=== PATIENT | male | born 1940 | race Caucasian/White ===

== ENCOUNTER → 2016-09-22 | Outpatient (CLI) | payer MEDICARE, OTHER ==
[~2016-09-22] MED LIST: AMLODIPINE; ASPIRIN81 M2 PO; ASPIRIN81 MG PO; ATENOLOL PO; AVADART PO; AZOR 10-40 MG1 UDTAB PO; BENICAR HCT 40-1 TA1 PO; CARVEDILOL25 MG PO; CLONIDINE PO; COZAAR100 MG PO; FENOFIBRATE160 MG PO; FINASTERIDE5 M1 PO; FINASTERIDE5 MG PO; HCTZ PO; HYDRALAZINE HC100 MG PO; HYDRALAZINE HCL50 MG PO; LIPITOR PO; LIPITOR40 MG PO; LOPID600 MG PO; MULTI-VITAMIN1 TAB PO; NAPROSYN500 MG PO; NORMODYNE PO; NORVASC PO; NORVASC10 MG PO; OMEPRAZOLE40 MG PO; PANTOPRAZOLE SO40 MG PO; PREVACID PO; PROTONIX; PROTONIX PO; TEKTURNA; TENORMIN25 M1 PO; TESTIM TOP; TRICOR PO; VIT B-12 PO; VIT E PO; VITAMIN D 4001 UDTAB PO
--- NOTE | ~2016-09-22 | US37 ---
[facility] A Service of [facility] & [facility] RADIOLOGY TEXT RESULTS PATIENT: MAX LAWSON LOCATION: [facility] : 39 UNIT #: [id number] AGE: [address]: TIFFANIE PHAM APRN SEX: M ORDER DR: [id number] [facility] [address]. [place], [place] [address] [id number] O MR#: [id number] Acc #: [id number] NAME: MAX LAWSON : 1940 SEX: M STUDY DATE/TIME: 09/22/2016 11:39 UNIT: [facility] ROOM: STUDY DESCRIPTION: US Carotid W/Doppler Bilateral Attending Physician: Tiffanie Pham Aprn Referring Physician: Tiffanie Pham Aprn Ordering Physician: Tiffanie Pham Aprn Primary Care Physician: Tomy Leung M.D. MEDICAL IMAGING REPORT This report is preliminary unless electronic signature is present EXAM Bilateral carotid duplex, 09/22/2016. HISTORY Hypertension, carotid stenosis. FINDINGS There is patent flow seen throughout the right common carotid, internal carotid, and external carotid arteries. There is diffuse atherosclerosis noted throughout these vessels. There is some focal area of homogeneous and irregular-appearing plaque seen in the carotid bifurcation, external carotid artery, and proximal internal carotid artery. The right common carotid artery peak velocity is 98 cm/sec. The right internal carotid artery peak systolic/end diastolic velocities are: proximal 215/60 cm/sec, mid 274/81 cm/sec, distal 146/33 cm/sec. The right external carotid artery peak velocity is 109 cm/sec, and the vertebral artery 56 cm/sec. The right ICA:CCA ratio is 2.8. There is patent flow seen throughout the left common carotid, internal carotid and external carotid arteries. There is heavy calcification noted throughout, especially in the left carotid bifurcation, which appears heterogeneous and irregular. Also extending into the internal carotid artery, as well as external carotid artery. Of note, there is also some heavy irregular plaque noted in the mid portion of the left common carotid artery. The left common carotid artery peak velocity is 70 cm/sec. The left internal carotid artery peak systolic/end diastolic velocities are: proximal 433/180 cm/sec, mid 126/23 cm/sec, distal 131/28 cm/sec. The left external carotid artery has a peak velocity of 73 cm/sec, and the vertebral artery 88 cm/sec. The left ICA:CCA ratio is 6.2. IMPRESSION 1. The right carotid artery has atherosclerosis, consistent with greater STS. [facility] A Service of [facility] & [facility] RADIOLOGY TEXT RESULTS PATIENT: MAX LAWSON [facility] UNIT #: [id number] AGE: [address]: TIFFANIE PHAM APRN SEX: M ORDER DR: than 70% stenosis by duplex criteria. This represents an increase from the 03/2015 study. 2. The left carotid artery demonstrates a high-grade stenosis, likely greater than 80%, by duplex criteria. Again, this represents an increase from the 03/2015 study. 3. Vertebral flow is antegrade bilaterally. STAT * RESULT Dictated by... Toy Yanes M.D. THIS IS AN ELECTRONICALLY VERIFIED REPORT Toy Yanes M.D. at 09/22/2016 4:33 PM Tim TD: 09/22/2016 13:23 JOB #: [id number] MEDICAL IMAGING REPORT COPY
--- NOTE | ~2016-09-22 | CT14 ---
[facility] A Service of [facility] & [facility] RADIOLOGY TEXT RESULTS PATIENT: MAX LAWSON [facility] UNIT #: [id number] AGE: [address]: TIFFANIE PHAM APRN SEX: M ORDER DR: [id number] [facility] [address] [place], [place] [address] [id number] O MR#: [id number] Acc #: [id number] NAME: MAX LAWSON. : 1940 SEX: M STUDY DATE/TIME: 09/22/2016 11:25 UNIT: [facility] ROOM: STUDY DESCRIPTION: CT Angio Abdomen and Pelvis Attending Physician: Tiffanie Pham Aprn Referring Physician: Tiffanie Pham Aprn Ordering Physician: Tiffanie Pham Aprn Primary Care Physician: Tomy Leung M.D. MEDICAL IMAGING REPORT This report is preliminary unless electronic signature is present EXAM CT angiography abdomen and pelvis, 09/22/2016. HISTORY Abdominal aortic aneurysm. Stent repair. FINDINGS This CT exam was performed with one or more of the following radiation dose reduction techniques: Automatic exposure control, adjustment of mA and/or kV according to patient size, and iterative reconstruction. CT angiography abdomen and pelvis performed. Initial imaging performed through the patient's aortic stent graft without intravascular contrast. The patient then received 100 mL Isovue-370 intravenously. Delayed-phase imaging also obtained through the aorta. Comparison 03/20/2016. Multiple three-dimensional reconstructions performed through the aorta. Subtle reticulonodular densities at the lung bases, left greater than right, less pronounced than on prior study and favored to reflect chronic interstitial change and/or minimal bronchiolitis. Trace pericardial fluid. Stable. Heart dfbxzd-os-uedsk limits of normal in size. Liver, gallbladder, spleen, pancreas, adrenal glands unremarkable. Nonobstructing left mid renal calculus and punctate left lower pole renal calculus unchanged. No right renal calculi. Bilateral renal cysts unchanged. No acute renal findings and no perinephric inflammatory change. Not mentioned above, there is a nonobstructing right lower pole renal calculus, which is also stable. CT PELVIS: Extensive streak artifact from left hip arthroplasty. No inguinal adenopathy. Urinary bladder unremarkable. Prostatic calcifications. No pelvic or retroperitoneal adenopathy. Distal esophagus, stomach, small bowel, appendix, colon notable for extensive uncomplicated sigmoid diverticulosis. Multilevel degenerative changes in STS. [facility] A Service of [facility] & [facility] RADIOLOGY TEXT RESULTS PATIENT: MAX LAWSON LOCATION: [facility] : 39 UNIT #: [id number] AGE: [address]: TIFFANIE PHAM, AIMEE SEX: M ORDER DR: the spine. Moderate to marked degenerative changes in the right hip. No acute-appearing bony abnormality. VASCULAR ANATOMY: Visualized descending thoracic aorta unremarkable. The celiac axis is patent with mild atherosclerotic disease at its origin. Superior mesenteric artery patent with mild atherosclerotic disease at its origin. There are 2 right renal arteries. The slightly more cephalad and anterior of these shows moderate disease at its origin. Second right renal artery shows moderate disease in its proximal centimeter. There is a single left renal artery with mild disease at its origin. There is an infrarenal fusiform abdominal aortic aneurysm. Patient has undergone endovascular stent graft placement. The graft limbs appear widely patent and extend to the distal common iliac arteries bilaterally. The aneurysm sac on axial imaging measures up to 5 cm x 4.9 cm. Stable to marginally decreased from prior examination when similar outer azul-fl-lheje wall measurement technique is utilized. When outer uein-qf-gpulp wall measurement technique utilized at the same anatomic level, aneurysm measured 5 cm x 5.2 cm on prior study. There is a very subtle type II endoleak. There is subtle enhancement posterior to the proximal intraaneurysmal graft limbs. This appears associated with a left lumbar artery at the approximately L3-L4 intervertebral disc level. There is also apparent patency of the inferior mesenteric artery to the level of its origin. Attention at followup is recommended. The alturas bilateral internal and external iliac arteries are patent with mild atherosclerotic disease. The alturas common femoral arteries are patent with mild atherosclerotic disease, and the proximal superficial femoral and profunda femoris arteries are patent with mild atherosclerotic disease. There is a focal ulcerated plaque along the anterior aspect of the proximal right superficial femoral artery. This area was not included on the field of view of prior study. IMPRESSION 1. Status post endovascular graft repair of fusiform infrarenal abdominal aortic aneurysm. Graft limbs appear widely patent. Aneurysm sac currently measures approximately 4.9 cm x 5 cm, mkuhmx-sg-rsmoqeklwo decreased in size from prior examination, when it measured 5 cm x 5.2 cm when similar outer jssb-cb-gokvj wall measuring technique is utilized at similar anatomic levels. 2. There is a very subtle endoleak present with some subtle enhancement within the aneurysm sac posterior to the proximal graft limbs. This is in association with a left lumbar artery at approximately L3-L4 intervertebral disc level. The endoleak would appear to be a type II endoleak and may be associated with what appears to be a patent inferior mesenteric artery. Attention at followup recommended. 3. Atherosclerotic changes in the arterial structures as described elsewhere. See remainder of vascular anatomy discussion in body of report above. 4. Heart rolmys-kj-tmzhb limits of normal in size. Trace pericardial fluid. Stable. [facility]. [facility] A Service of [facility] RADIOLOGY TEXT RESULTS PATIENT: MAX LAWSON LOCATION: [facility] : 39 UNIT #: [id number] AGE: [address]: TIFFANIE PHAM, AIMEE SEX: M ORDER DR: 5. Nonobstructing renal stones and bilateral renal cysts unchanged from prior study. 6. Uncomplicated sigmoid diverticulosis. 7. Postoperative change left hip arthroplasty. 8. Degenerative changes in spine and right hip. 9. There is probable emphysema at lung bases. Subtle reticulonodular pattern at the bilateral lung bases, left greater than right, is less pronounced than on prior study and probably represents chronic interstitial change and/or very mild bronchiolitis. Please see remainder of incidental findings in body of report above. Dictated by... Bin Tirado M.D. THIS IS AN ELECTRONICALLY VERIFIED REPORT Bin Tirado M.D. at 09/24/2016 7:54 AM DALIA/lucille TD: 09/23/2016 21:38 JOB #: [id number] MEDICAL IMAGING REPORT COPY
[2016-09-22 12:16] LABS: POC - CREATININE 1.53 mg/dL (0.64-1.27)
== END | disposition home or self-care (01) ==
LOC: CCAT 08:52
PROVIDERS: Nurse Practitioner
DX: I65.23 Occlusion and stenosis of bilateral carotid arteries (principal); I71.4 Abdominal aortic aneurysm, without rupture; N20.0 Calculus of kidney; N28.1 Cyst of kidney, acquired; M47.819 Spondylosis without myelopathy or radiculopathy, site unspecified; M16.11 Unilateral primary osteoarthritis, right hip; Z98.890 Other specified postprocedural states
CPT/HCPCS: 74174; 82565; 93880; 96360; 96361; Q9967

== ENCOUNTER 2016-10-13 10:46 | Emergency (ER) | payer MEDICARE, OTHER ==
--- NOTE | ~2016-10-13 | CR72 ---
[facility] A Service of [facility] RADIOLOGY TEXT RESULTS PATIENT: MAX LAWSON LOCATION: [facility] : 39 UNIT #: [id number] AGE: [address]: Poli Cummings MD SEX: M ORDER DR: [id number] [facility] [address] [place], [place] [address] [id number] E MR#: [id number] Acc #: [id number] NAME: MAX LAWSON. : 1940 SEX: M STUDY DATE/TIME: 10/13/2016 11:18 UNIT: [facility] ROOM: STUDY DESCRIPTION: CR Chest Single View Portable Attending Physician: Poli Cummings M.D. Ordering Physician: Poli Cummings M.D. Primary Care Physician: Tomy Leung M.D. MEDICAL IMAGING REPORT This report is preliminary unless electronic signature is present EXAM Chest portable, 10/13/2016 11:18 hours HISTORY 75-year-old man with sudden onset of dizziness, sweating and drop in blood pressure today. COMPARISON 01/30/2016 FINDINGS 2 portable upright views demonstrate heart size mildly increased from 01/30/2016 which could be due to cardiomegaly or pericardial fluid. There is a stable tortuous atherosclerotic aorta. There is mild pulmonary venous distension slightly increased from 01/30/2016 without definite edema, effusion or pneumothorax. IMPRESSION 1. Heart size is minimally increased from 01/30/2016 which could indicate cardiomegaly or small pericardial effusion. There is a stable tortuous atherosclerotic aorta. 2. There is new mild pulmonary venous distension without definite edema, pneumonia, effusion or pneumothorax. Dictated by... Debra Galicia M.D. THIS IS AN ELECTRONICALLY VERIFIED REPORT Debra Galicia M.D. at 10/13/2016 6:54 PM Johnnie TD: 10/13/2016 14:47 JOB #: [id number] [facility] A Service of [facility] RADIOLOGY TEXT RESULTS PATIENT: MAX LAWSON LOCATION: [facility] #: [id number] : 39 UNIT #: [id number] AGE: [address]: Poli Cummings MD SEX: M ORDER DR: MEDICAL IMAGING REPORT Page 1 of 1 COPY
--- NOTE | ~2016-10-13 | EKG ---
PATIENT: MAX LAWSON UNIT #: [id number] Ventricular Rate: 78 BPM Atrial Rate: 78 BPM P-R Interval: 146 ms QRS Duration: 162 ms Q-T Interval: 486 ms QTC Calculation(Bezet): 554 ms P [place]: 48 degrees Calculated R [place]: 42 degrees Calculated T [place]: -173 degrees Diagnosis Line: Sinus rhythm with Premature atrial complexes Diagnosis Line: Left bundle branch block Diagnosis Line: Abnormal ECG Diagnosis Line: No previous ECGs available Diagnosis Line: Confirmed by SOTO GRACE MD ([id number]) on Diagnosis Line: 10/14/2016 2:21:57 PM INTERPRETING MD: SANJAY WASHINGTON
[~2016-10-13 10:46] MED LIST changes: -ASPIRIN81 MG PO; -CLONIDINE PO; -FINASTERIDE5 MG PO; -HYDRALAZINE HC100 MG PO; -LIPITOR40 MG PO; -PROTONIX; -TESTIM TOP
[2016-10-13 11:08] LABS: BASOPHIL# 0.1 X10e3 (0-0.3); BASOPHIL% 0.4 % (0-2.5); EOSINOPHIL# 0.7 X10e3 (0-0.7); EOSINOPHIL% 4.7 % (0.0-7.0); HEMATOCRIT 41.1 % (38.0-50.0); HEMOGLOBIN 13.3 gm/dL (13.0-16.0); LYMPHOCYTE# 1.7 X10e3 (1.0-3.5); LYMPHOCYTE% 11.5 % (17.0-45.0); MEAN CELL VOLUME 89.8 FL (83-96); MEAN CORPUSCULAR HEMOGLOBIN 29.1 PG (28-34); MEAN CORPUSCULAR HGB CONC 32.5 g/dL (30-36); MEAN PLATELET VOLUME 10.4 FL (6.5-11.5); MONOCYTE% 6.9 % (3.0-12.0); NEUTROPHIL% 76.5 % (40-75); PLATELET COUNT 172 X10e3 (140-420); RED BLOOD COUNT 4.58 X10e (3.90-5.60); RED CELL DISTRIBUTION WIDTH 14.2 % (11.0-15.5); WHITE BLOOD COUNT 14.4 X10e3 (4.0-10.5)
[2016-10-13 11:10] LABS: DIFF IND NO
[2016-10-13 11:36] LABS: ALBUMIN SERUM 3.6 g/dL (3.5-5.0); BILIRUBIN, DIRECT 0.2 mg/dL (0.0-0.2); BILIRUBIN,INDIRECT 0.7 mg/dL (0.0-0.9); BILIRUBIN,TOTAL 0.9 mg/dL (0.2-2.0); BUN/CREATININE RATIO 20.66; CALCIUM SERUM 8.9 mg/dL (8.4-10.2); CREATININE SERUM 1.5 mg/dL (0.6-1.4); GLOM FILT RATE Estimated 48.4 mL/min (>60); POTASSIUM 3.5 mmol/L (3.5-5.1); PROTEIN TOTAL SERUM 6.7 g/dL (6.0-8.3)
[2016-10-13 12:18] LABS: POC - CKMB 2.5 ng/mL (0.0-7.9); POC - TROPONIN <0.05 ng/mL (<=0.05)
[2016-10-13] MEDS ORDERED: CLONIDINE PO (13:23)
[2016-10-13] MEDS ORDERED: LIPITOR40 MG PO (13:24)
[2016-10-13] MEDS ORDERED: CARVEDILOL25 MG PO (13:24)
[2016-10-13] MEDS ORDERED: FENOFIBRATE160 MG PO (13:25)
[2016-10-13] MEDS ORDERED: HYDRALAZINE HC100 MG PO (13:27)
[2016-10-13] MEDS ORDERED: FINASTERIDE5 MG PO (13:27)
[2016-10-13] MEDS ORDERED: COZAAR100 MG PO (13:28)
[2016-10-13] MEDS ORDERED: PROTONIX (13:28)
[2016-10-13] MEDS ORDERED: ASPIRIN81 MG PO (13:29)
[2016-10-13] MEDS ORDERED: PROTONIX PO (13:29)
[2016-10-13] MEDS ORDERED: TESTIM TOP (13:32)
== END 2016-10-13 14:20 | disposition home or self-care (01) ==
LOC: CED 10:46
PROVIDERS: Emergency Medicine
DX: R55 Syncope and collapse (principal); I10 Essential (primary) hypertension; Z79.899 Other long term (current) drug therapy; F17.200 Nicotine dependence, unspecified, uncomplicated
CPT/HCPCS: 36415; 70496; 70498; 71010; 80048; 80076; 82553; 82565; 82947; 84484; 85025; 93005; 96360; 99285; Q9967

== ENCOUNTER 2016-11-11 23:59 | Observation (INO) | payer MEDICARE, OTHER ==
--- NOTE | ~2016-11-11 | CR72 ---
[facility] A Service of [facility] & [facility] RADIOLOGY TEXT RESULTS PATIENT: MAX LAWSON LOCATION: [facility] [id number] : 39 UNIT #: [id number] AGE: [address]: Eduar Sebastian MD SEX: M ORDER DR: [id number] [facility] [address] [place], [place] [address] [id number] E MR#: [id number] Acc #: [id number] NAME: MAX LAWSON : 1940 SEX: M STUDY DATE/TIME: 11/11/2016 23:30 UNIT: [facility] ROOM: STUDY DESCRIPTION: CR Chest Single View Portable Attending Physician: Jami Oro M.D. Ordering Physician: Jami Oro M.D. Primary Care Physician: Tomy Leung M.D. MEDICAL IMAGING REPORT This report is preliminary unless electronic signature is present EXAM Portable chest INDICATIONS Shortness of air for 1 day with chest pain. COMPARISON 10/13/2016 FINDINGS Today's portable view of the chest shows mild, diffuse interstitial prominence with minimal interstitial infiltrates, particularly in the right lower lobe and the findings suggest minimal fluid overload or CHF. The heart size is normal. Dictated by... Wes Patel M.D. THIS IS AN ELECTRONICALLY VERIFIED REPORT Wes Patel M.D. at 11/12/2016 5:31 AM HARRY/lucille TD: 11/12/2016 03:20 JOB #: [id number] MEDICAL IMAGING REPORT Page 1 of 1 COPY
--- NOTE | ~2016-11-11 | CO ---
Unit #: [id number] #: [id number] Patient: MAX LAWSON [id number] [place], [place] [address] [id number] MR#: [id number] NAME: MAX LAWSON ROOM: 554 Age: 75 Sex: M Admission Date: 11/12/2016 : 1940 Attending Physician: Eduar Sebastian M.D. Primary Care Physician: Tomy Leung M.D. Consultation Date: 11/12/2016 CONSULTATION REPORT REASON FOR CONSULT Chronic kidney disease. HISTORY OF PRESENT ILLNESS Mr. Urbina is a very pleasant, 75-year-old, white male with a history of significant hypertension and peripheral vascular disease who presented to the hospital yesterday with complaints of some chest heaviness. He also broke out in a sweat at that time and had some breathing issues. The pain was relieved with nitroglycerin. Patient has been evaluated here at [place] and Dr. Lopes's group feels like he needs a heart catheterization. It was scheduled for tomorrow, which prompted out consultation for heart cath prep, but he is being transferred to [facility] as his family would like him to be transferred there for further care as they know the cardiology team there through family. Patient appears comfortable at this time. He says his breathing is better. He denies any urinary complaints of swelling. He has been using a lot of Aleve at home, taking up to four a day, for quite some time. He denies any history of kidney stones. His blood pressure was noted to be very high when he presented. PAST MEDICAL HISTORY His past medical history is significant for: 1. Peripheral vascular disease with left carotid endarterectomy planned by Dr. Gbariel puga. 2. AAA repair. 3. Hypertension. 4. Hyperlipidemia. 5. Reformed smoker. 6. Obstructive sleep apnea. 7. Renovascular disease, right greater than left. PAST SURGICAL HISTORY Aneurysm repair endovascularly in summer of 2015, right knee surgery, and right hip surgery. MEDICATIONS His home meds are: 1. Clonidine 0.2 mg twice a day. 2. Lipitor 40 mg nightly. 3. Coreg 25 mg twice a day. 4. Fenofibrate 160 mg daily. 5. Finasteride 5 mg a day. 6. Hydralazine 100 mg b.i.d. 7. Cozaar 100 mg a day. Unit #: [id number] #: [id number] Patient: MAX LAWSON 8. Protonix 40 mg a day. 9. Baby aspirin daily. 10. Topical testosterone. ALLERGIES He has no known drug allergies. SOCIAL HISTORY He is a reformed smoker; quit smoking about two months ago. His daughter works in the [employer] at [employer]. Social alcohol use. No drug use. FAMILY HISTORY Negative for any heart disease or kidney problems that run in the family. His daughter did have a nephrectomy as a child. REVIEW OF SYSTEMS A complete 12-point review of systems was completed with the above findings. In addition, he denies any headaches or dizziness. No nosebleed. No sore throat. No earache. Chest pain has improved. No hemoptysis. No nausea, vomiting, or diarrhea. No bright red blood per rectum or melena. No dysuria. No hematuria. No rashes or itching. No flank pain. No night sweats or hot flashes. No intolerance to heat or cold. No bleeding issues. Unless otherwise indicated, the review of systems was negative. PHYSICAL EXAMINATION VITAL SIGNS: Patient is afebrile, pulse 93, respiratory rate 18, and blood pressure 176/108; however, it was as high as 195/118. GENERAL: This is a 75-year-old male sitting comfortably in bed who is alert and in no acute distress. HEENT: Head is atraumatic and normocephalic. Eyes show pink conjunctivae with no scleral icterus. No nasal drainage. No nosebleed. Oropharynx is moist. No thrush. NECK: Shows no rigidity. HEART: Regular rate and rhythm with no significant murmur or rub appreciated. LUNGS: Clear anteriorly with no wheezing or rhonchi at this time. Breathing is nonlabored. ABDOMEN: Soft and nontender. Bowel sounds are present. EXTREMITIES: No lower extremity cyanosis or edema. SKIN: Dry with no rashes. MUSCULOSKELETAL: No joint effusions noted. NEUROLOGIC: Cranial nerves are grossly intact with no gross motor deficits. LYMPHATIC: There is no neck cervical lymphadenopathy. PSYCHIATRIC: Mood and affect appear normal. DIAGNOSTIC STUDIES LABORATORY: CK level was 155 and troponin 0.08. Chemistry this morning noteworthy for a potassium of 3.4, bicarb 24, BUN and creatinine were 30 and 1.6, respectively, with a normal albumin. CBC was unremarkable. BNP was 747. Creatinine on admission was also 1.6. Previously creatinines here were 1.5 in September of 2016 and 1.8 in August 2016. No previous urines here. IMAGING: Chest x-ray showed some questionable interstitial infiltrates. Unit #: [id number] #: [id number] Patient: MAX LAWSON I do note a CT angiogram in August of this year that showed a nonobstructive left kidney stone and bilateral renal cysts. Vascular-ellis, patient had two right renal arteries showing moderate disease and a single left renal artery showing mild disease at its origin with a stented aneurysm. ASSESSMENT AND PLAN 1. Chronic kidney disease, stage 3. It does look like the patient certain has chronic kidney disease, likely related to his hypertension and known vascular issues. We do need to get a urinalysis. Patient has been on Aleve, which we discussed at length. He needs to be on Tylenol-based pain medicines going forward. I did discuss with his family that he will need a prep for the heart catheterization and Cozaar has already been held. I will notify my partners downtown of the need for prep tonight. 2. Hypokalemia. We will replace this before discharge. 3. Hypertension. He has evidence of poor control and his medications have already been increased by Dr. Lopes and can be titrated further at [facility]. 4. History of AAA repair. 5. History of carotid and renovascular disease. 6. Chest pain with heart cath pending downtown. I would like to thank Dr. Lopes for this consult and the opportunity to participate in the evaluation and care of Mr. Lawson. Dictated by... Brandon Cifuentes Jr., M.D. LYNNETTE/collins TD: 11/13/2016 05:13 JOB #: [id number] CONSULTATION REPORT Page 1 of 1 X Brandon Cifuentes MD CONSULTATION REPORT
--- NOTE | ~2016-11-11 | DS ---
Unit #: [id number] #: [id number] Patient: MAX LAWSON [id number] [address]. [address] [place], [place] [address] [id number] MR#: [id number] NAME: MAX LAWSON. ROOM: 554 Age: 75 Sex: M Admission Date: 11/12/2016 : 1940 Discharge Date: Attending Physician: Eduar Sebastian M.D. Primary Care Physician: Tomy Leung M.D. DISCHARGE SUMMARY REVISED REPORT SHORT STAY SUMMARY CHIEF COMPLAINT Chest pain. HISTORY OF PRESENT ILLNESS This is a very pleasant 75-year-old male, who is followed typically by Dr. Almanzar. He has a past medical history of atherosclerotic heart disease, hypertension, hyperlipidemia, obstructive sleep apnea, known carotid stenosis, left bundle branch block, reformed tobacco abuse. The patient states he quit approximately two months ago and status post recent endovascular abdominal aortic aneurysm repair on February 01, [address] Rios. The patient also reports to me that he is scheduled for upcoming surgery for left carotid endarterectomy per Dr. Rios this upcoming week. The patient presents to the emergency room after he states yesterday he was at the [facility] post having some beers and playing shuffleboard with his friends when he developed substernal chest heaviness and how he describes it/pressure that occurred suddenly. He states he broke out in a sweat. Also, developed shortness of breath. However, he denied any radiation of the pain into the arms, jaw, or into the back. The patient states this pain occurred until he arrived to the emergency room. He states the pain was relieved with nitroglycerin sublingually. It is notable he also has reported to me that over the last several weeks he had noticed increasing exertional shortness of breath with minimal activity and worsening fatigue. He reports he has had a stress test in the past but thinks it has been a while. On arrival to the emergency room, the patient's EKG shows sinus tachycardia, rate of 101 beats per minute. Left bundle branch block is present. This is chronic and does not appear to be new. QTc interval is 539 ms. Cannot rule out possible lateral infarct age undetermined. No acute ischemic change is noted. Initial cardiac enzymes thus far have been negative x2. His initial BNP was also noted to be elevated at 747 and his chest x-ray showed mild diffuse interstitial prominence with minimal infiltrates suggestive of mild volume overload. Heart size was normal. At present, he is in the emergency room in bed 30. He is currently chest pain free. Denies shortness of breath; however, he looks somewhat labored on examination. We are currently awaiting his to come in. Presently, there is no family at bedside. On arrival to the emergency room, the patient was found to be hypertensive, blood pressures running in the upper 190s over one teens. In the ER, he did receive 0.2 mg of p.o. clonidine and 40 mg of IV Lasix as well as 100 mg of p.o. hydralazine. Unit #: [id number] #: [id number] Patient: MAX LAWSON PAST MEDICAL HISTORY 1. Status post recent endovascular abdominal aortic aneurysm repair, February 01, 2016, per Dr. Rios. 2. Known carotid stenosis. 3. Hypertension. 4. Hyperlipidemia. 5. Obstructive sleep apnea. 6. Chronic left bundle branch block. 7. Reformed tobacco abuse, quit approximately two months ago. 8. Hyperlipidemia. 9. Atherosclerotic heart disease. 10. A 2D echocardiogram, May 2015, showed LV EF of 50% to 55%, mild MR. PAST SURGICAL HISTORY 1. Endovascular abdominal aortic aneurysm repair, February 01, 2016, per Dr. Rios. 2. Colonoscopy in the past. 3. Repair of meniscal tears, right knee. 4. Right hip surgery. HOME MEDICATIONS 1. Clonidine 0.2 mg p.o. b.i.d. 2. Lipitor 40 mg p.o. nightly. 3. Coreg 25 mg p.o. b.i.d. 4. Fenofibrate 160 mg p.o. daily. 5. Finasteride 5 mg p.o. daily. 6. Hydralazine 100 mg p.o. b.i.d. 7. Cozaar 100 mg p.o. daily. 8. Protonix 40 mg p.o. daily. 9. Aspirin 81 mg p.o. daily. 10. Testosterone one topical daily. ALLERGIES No known drug allergies. SOCIAL HISTORY The patient is retired from [employer]. He lives in a private residence with his . He quit smoking approximately two months ago. Prior to that, he was a half pack per day smoker for approximately 60 years. He states he drinks alcohol socially but no heavy alcohol use is reported. Denies illicit drugs. FAMILY HISTORY Patient denies any known family history for coronary artery disease. REVIEW OF SYSTEMS Positive recently for weight gain, occasional dizziness, dry eyes, and fatigue. Otherwise negative except for what was stated above in the HPI. PHYSICAL EXAMINATION VITAL SIGNS: Temperature 98.2, respiratory rate 18-20, pulse 90s to low 100s, O2 saturations 92% on 3 L nasal cannula, blood pressures running on admission 195/118 to 183/95. BMI is 29. GENERAL: This is a pleasant 75-year-old male who is in no acute distress. HEENT: Head is atraumatic, normocephalic. Pupils are equal and round. NECK: Trachea is midline. No lymphadenopathy or thyromegaly. No jugular Unit #: [id number] #: [id number] Patient: MAX LAWSON vein distention. No obvious carotid bruit. CARDIOVASCULAR: S1, S2. No murmur, gallop, or rub. LUNGS: Clear to auscultation anteriorly, somewhat diminished in the bases. ABDOMEN: Soft, obese pannus. No hepatosplenomegaly. No masses. Bowel sounds are present. EXTREMITIES: Pulses are weak. No clubbing, cyanosis, or edema. NEUROLOGIC: He is awake, alert, and oriented. He moves extremities equally. He follows commands with ease. DIAGNOSTIC STUDIES LABORATORY: Initial point of care troponins have been less than 0.05 x2. Sodium 137, potassium 3.4, chloride 106, CO2 of 24, BUN 30, creatinine 1.6, glucose 150. BNP is 747. Hemoglobin 13.2, hematocrit 40.4, WBC 7.6, platelet count 162,000. Coags are within normal limits. IMAGING: Chest x-ray shows diffuse interstitial prominence with minimal interstitial infiltrates, particularly in the right lower lobe and findings suggest minimal fluid overload. Heart size is normal. CARDIOVASCULAR: EKG shows sinus tachycardia, 101 beats per minute. Left bundle branch block is present. Cannot rule out possible lateral infarct, age undetermined. QTc interval 539 ms. IMPRESSION 1. Unstable angina: Rule out myocardial infarction. 2. Malignant hypertension. 3. History of recent abdominal aortic aneurysm endovascular repair, February 01, 2016. 4. Known carotid stenosis, is scheduled for upcoming surgery for left carotid endarterectomy per Dr. Rios recently. 5. Hyperlipidemia. 6. Obstructive sleep apnea. 7. Reformed tobacco abuse. 8. Acute kidney injury. 9. Acute on probable chronic kidney disease, appears to be around his baseline. PLAN This patient has been admitted with symptoms suggestive of unstable angina. He does have significant risk factors for cardiovascular disease which include known carotid stenosis, recent endovascular aortic aneurysm repair, hypertension, hyperlipidemia, and reformed tobacco abuse. The patient quit approximately two months ago as well as chronic left bundle branch block. On admission, he was found to have malignant hypertension. It is also noted the patient's creatinine was slightly elevated on admission and appears close to baseline which he may have some element of chronic kidney disease. Would highly recommend the patient undergo cardiac catheterization. This has been discussed with him and his and they are agreeable and willing to proceed. The patient's medications will be currently adjusted. His Cozaar will be discontinued at this time secondary to his elevated creatinine. Hydralazine will be increased to 100 mg p.o. t.i.d. and he will be started on nitrates with Isordil 40 mg p.o. b.i.d. The patient will also be started on Lovenox 1 mg/kg subcutaneous daily. He will be continued on his current aspirin and statin regimen. Thus far, his cardiac enzymes have been negative. We will continue to trend those out as well as follow serial EKGs. Dr. Nj or Dr. Cifuentes have been asked to see the patient for chronic kidney Unit #: [id number] #: [id number] Patient: MAX LAWSON disease and optimization of his renal status prior to undergoing cardiac catheterization. He will have CBC, BMP, troponin, fasting lipids, TSH, and EKG tomorrow in the a.m. Please note, apparently the patient's granddaughter works at [facility] in the process laboratory specialist with Dr. Chopra and Dr. Almanzar and once she came in and spoke with us, it was determined that she would prefer the patient be moved to [facility] for her procedure to be done there. Dr. hCopra is agreeable to accepting the patient and we are working currently on transfer at this time. We are currently awaiting bed assignment and then the patient will be moved. All of this has been explained to the patient and the family and this is what they prefer. Dr. Lopes is aware and agreeable. Date of cath to be determined per Dr. Chopra. The patient will be transferred as he is currently stable and chest pain free. He will be admitted to intermediate level bed, most likely 7/8 Heart and Lung. Further recommendations to follow pending outcome of cardiac catheterization. Dictated by... Brissa Cagle A.P.R.N. for Ministerio Abdi/cam TD: 11/12/2016 11:24 JOB #: [id number] DISCHARGE SUMMARY Page 1 of 1 X Brissa Cagle CORRESPONDENCE COORDINATOR X DISCHARGE SUMMARY
--- NOTE | ~2016-11-11 | EKG ---
PATIENT: MAX LAWSON UNIT #: [id number] Ventricular Rate: 99 BPM Atrial Rate: 99 BPM P-R Interval: 154 ms QRS Duration: 168 ms Q-T Interval: 422 ms QTC Calculation(Bezet): 541 ms P Pickford: 68 degrees Calculated R Pickford: 56 degrees Calculated T Pickford: 130 degrees Diagnosis Line: Normal sinus rhythm Diagnosis Line: Left bundle branch block Diagnosis Line: Abnormal ECG Diagnosis Line: When compared with ECG of 11-NOV-2016 22:41, Diagnosis Line: (unconfirmed) Diagnosis Line: Fusion complexes are no longer Present Diagnosis Line: Confirmed by SIMRAN HOOKER MD ([id number]) on 11/12/2016 Diagnosis Line: 10:45:41 PM INTERPRETING MD: NHUNG WASHINGTON
[2016-11-11 23:28] LABS: BASOPHIL% 0.3 % (0-2.5); EOSINOPHIL# 0.7 X10e3 (0-0.7); EOSINOPHIL% 5.9 % (0.0-7.0); HEMATOCRIT 40.4 % (38.0-50.0); HEMOGLOBIN 13.2 gm/dL (13.0-16.0); LYMPHOCYTE# 1.9 X10e3 (1.0-3.5); LYMPHOCYTE% 16.5 % (17.0-45.0); MEAN CELL VOLUME 89.6 FL (83-96); MEAN CORPUSCULAR HEMOGLOBIN 29.2 PG (28-34); MEAN CORPUSCULAR HGB CONC 32.6 g/dL (30-36); MEAN PLATELET VOLUME 10.1 FL (6.5-11.5); MONOCYTE# 0.9 X10e3 (0-1.0); MONOCYTE% 7.4 % (3.0-12.0); NEUTROPHIL# 8.1 X10e3 (1.5-7.1); NEUTROPHIL% 69.9 % (40-75); PLATELET COUNT 179 X10e3 (140-420); RED BLOOD COUNT 4.51 X10e (3.90-5.60); RED CELL DISTRIBUTION WIDTH 14.6 % (11.0-15.5); WHITE BLOOD COUNT 11.6 X10e3 (4.0-10.5)
[2016-11-11 23:29] LABS: DIFF IND NO
[2016-11-11 23:29] LABS: POC - CKMB 2.3 ng/mL (0.0-7.9); POC - TROPONIN <0.05 ng/mL (<=0.05)
[2016-11-11 23:39] LABS: INR 1.1; PARTIAL THROMBOPLASTIN TIME 25.8 SECONDS (23.5-31.3); PROTHROMBIN TIME (PATIENT) 11.7 SECONDS (9.6-11.5)
[2016-11-11 23:50] LABS: ALBUMIN SERUM 3.8 g/dL (3.5-5.0); BILIRUBIN, DIRECT 0.2 mg/dL (0.0-0.2); BILIRUBIN,INDIRECT 0.7 mg/dL (0.0-0.9); BILIRUBIN,TOTAL 0.9 mg/dL (0.2-2.0); BUN/CREATININE RATIO 20.62; CALCIUM SERUM 9.3 mg/dL (8.4-10.2); CREATININE SERUM 1.6 mg/dL (0.6-1.4); GLOM FILT RATE Estimated 41.3 mL/min (>60); PROTEIN TOTAL SERUM 7.4 g/dL (6.0-8.3)
[~2016-11-11 23:59] MED LIST changes: +ASPIRIN81 MG PO; +CLONIDINE PO; +FINASTERIDE5 MG PO; +HYDRALAZINE HC100 MG PO; +LIPITOR40 MG PO; +PROTONIX; +TESTIM TOP
[2016-11-12 01:17] LABS: POC - CKMB 1.4 ng/mL (0.0-7.9); POC - TROPONIN <0.05 ng/mL (<=0.05)
[2016-11-12 06:02] LABS: BASOPHIL% 0.1 % (0-2.5); HEMATOCRIT 40.4 % (38.0-50.0); HEMOGLOBIN 13.2 gm/dL (13.0-16.0); LYMPHOCYTE# 0.9 X10e3 (1.0-3.5); LYMPHOCYTE% 11.4 % (17.0-45.0); MEAN CELL VOLUME 89.5 FL (83-96); MEAN CORPUSCULAR HEMOGLOBIN 29.3 PG (28-34); MEAN CORPUSCULAR HGB CONC 32.7 g/dL (30-36); MEAN PLATELET VOLUME 10.3 FL (6.5-11.5); MONOCYTE# 0.1 X10e3 (0-1.0); MONOCYTE% 0.9 % (3.0-12.0); NEUTROPHIL# 6.7 X10e3 (1.5-7.1); NEUTROPHIL% 87.6 % (40-75); PLATELET COUNT 162 X10e3 (140-420); RED BLOOD COUNT 4.51 X10e (3.90-5.60); RED CELL DISTRIBUTION WIDTH 14.5 % (11.0-15.5); WHITE BLOOD COUNT 7.6 X10e3 (4.0-10.5)
[2016-11-12 06:15] LABS: DIFF IND NO
[2016-11-12 06:23] LABS: ALBUMIN SERUM 4.1 g/dL (3.5-5.0); BILIRUBIN,TOTAL 0.9 mg/dL (0.2-2.0); BUN/CREATININE RATIO 18.75; CALCIUM SERUM 9.2 mg/dL (8.4-10.2); CREATININE SERUM 1.6 mg/dL (0.6-1.4); GLOM FILT RATE Estimated 41.3 mL/min (>60); POTASSIUM 3.4 mmol/L (3.5-5.1); PROTEIN TOTAL SERUM 7.4 g/dL (6.0-8.3)
[2016-11-12 08:04] LABS: MB 4.6 ng/ml
[2016-11-12 15:16] LABS: %MB 2.9 % (0.0-4.0); MB 4.8 ng/ml
== END 2016-11-12 16:52 ==
LOC: CED 23:59 → CEDOF 11-12 04:04 → C5B 11-12 08:56
PROVIDERS: Emergency Medicine; Internal Medicine Advanced Heart Failure and Transplant Cardiology
DX: I25.110 Atherosclerotic heart disease of native coronary artery with unstable angina pectoris (principal); I12.9 Hypertensive chronic kidney disease with stage 1 through stage 4 chronic kidney disease, or unspecified chronic kidney disease; N18.3 Chronic kidney disease, stage 3 (moderate); E87.6 Hypokalemia; I65.29 Occlusion and stenosis of unspecified carotid artery; I08.3 Combined rheumatic disorders of mitral, aortic and tricuspid valves; E78.5 Hyperlipidemia, unspecified; K21.9 Gastro-esophageal reflux disease without esophagitis; K44.9 Diaphragmatic hernia without obstruction or gangrene; G47.33 Obstructive sleep apnea (adult) (pediatric); Z98.890 Other specified postprocedural states; Z86.79 Personal history of other diseases of the circulatory system; M81.0 Age-related osteoporosis without current pathological fracture; Z87.891 Personal history of nicotine dependence; Z79.82 Long term (current) use of aspirin
CPT/HCPCS: 36415; 71010; 80048; 80053; 80076; 82550; 82553; 83880; 84484; 85025; 85610; 85730; 93005; 93306; 94640; 96372; 96374; 99291; G0378; J1650; J1940; J2930

== ENCOUNTER → 2016-11-28 | Outpatient (CLI) | payer MEDICARE, OTHER ==
[2016-11-28 15:39] LABS: BUN/CREATININE RATIO 21.42; CALCIUM SERUM 9.1 mg/dL (8.4-10.2); CREATININE SERUM 1.4 mg/dL (0.6-1.4); GLOM FILT RATE Estimated 48.5 mL/min (>60); POTASSIUM 3.8 mmol/L (3.5-5.1)
== END | disposition home or self-care (01) ==
LOC: CLAB 14:49
PROVIDERS: Internal Medicine Nephrology
DX: I50.9 Heart failure, unspecified (principal)
CPT/HCPCS: 36415; 80048

== ENCOUNTER → 2017-01-14 | Outpatient (CLI) | payer MEDICARE, OTHER ==
[2017-01-14 12:07] LABS: CALCIUM SERUM 8.8 mg/dL (8.4-10.2); GLOM FILT RATE Estimated 72.3 mL/min (>60); POTASSIUM 3.9 mmol/L (3.5-5.1)
== END | disposition home or self-care (01) ==
LOC: CLAB 10:13
PROVIDERS: Internal Medicine Interventional Cardiology
DX: I10 Essential (primary) hypertension (principal)
CPT/HCPCS: 36415; 80048

== ENCOUNTER → 2017-02-12 | Outpatient (CLI) | payer MEDICARE, OTHER ==
[2017-02-12 11:14] LABS: BASOPHIL% 0.4 % (0-2.5); EOSINOPHIL# 0.4 X10e3 (0-0.7); EOSINOPHIL% 4.9 % (0.0-7.0); HEMATOCRIT 36.2 % (38.0-50.0); HEMOGLOBIN 11.6 gm/dL (13.0-16.0); LYMPHOCYTE# 1.3 X10e3 (1.0-3.5); LYMPHOCYTE% 15.4 % (17.0-45.0); MEAN CELL VOLUME 91.7 FL (83-96); MEAN CORPUSCULAR HEMOGLOBIN 29.3 PG (28-34); MEAN PLATELET VOLUME 8.7 FL (6.5-11.5); MONOCYTE# 0.5 X10e3 (0-1.0); MONOCYTE% 6.4 % (3.0-12.0); NEUTROPHIL# 6.1 X10e3 (1.5-7.1); NEUTROPHIL% 72.9 % (40-75); PLATELET COUNT 295 X10e3 (140-420); RED BLOOD COUNT 3.95 X10e (3.90-5.60); RED CELL DISTRIBUTION WIDTH 14.7 % (11.0-15.5); WHITE BLOOD COUNT 8.4 X10e3 (4.0-10.5)
[2017-02-12 11:21] LABS: DIFF IND NO
[2017-02-12 12:10] LABS: BUN/CREATININE RATIO 15.83; CALCIUM SERUM 8.6 mg/dL (8.4-10.2); CREATININE SERUM 1.2 mg/dL (0.6-1.4); PHOSPHOROUS 3.3 mg/dL (2.5-4.6); POTASSIUM 4.3 mmol/L (3.5-5.1); URIC ACID 6.3 mg/dL (2.6-7.2)
[2017-02-15 14:43] LABS: CALCIUM (PTHINTACT) 8.6 mg/dL (8.6-10.3)
== END | disposition home or self-care (01) ==
LOC: CLAB 10:32
PROVIDERS: Internal Medicine Nephrology
DX: N18.3 Chronic kidney disease, stage 3 (moderate) (principal)
CPT/HCPCS: 36415; 80048; 82306; 82310; 83970; 84100; 84550; 85025

== ENCOUNTER → 2017-02-27 | Outpatient (CLI) | payer MEDICARE, OTHER ==
[2017-02-27 10:43] LABS: BUN/CREATININE RATIO 17.14; CALCIUM SERUM 8.9 mg/dL (8.4-10.2); CREATININE SERUM 1.4 mg/dL (0.6-1.4); GLOM FILT RATE Estimated 48.1 mL/min (>60); POTASSIUM 3.6 mmol/L (3.5-5.1)
== END | disposition home or self-care (01) ==
LOC: SLAB 10:10
PROVIDERS: Internal Medicine Interventional Cardiology
DX: I50.9 Heart failure, unspecified (principal)
CPT/HCPCS: 36415; 80048

== ENCOUNTER → 2017-03-17 | Outpatient (CLI) | payer MEDICARE, OTHER ==
[2017-03-17 13:39] LABS: CREATININE SERUM 1.4 mg/dL (0.6-1.4); GLOM FILT RATE Estimated 48.1 mL/min (>60)
== END | disposition home or self-care (01) ==
LOC: SLAB 13:06
PROVIDERS: Internal Medicine
DX: I71.9 Aortic aneurysm of unspecified site, without rupture (principal)
CPT/HCPCS: 36415; 82565; 84520

== ENCOUNTER → 2017-03-24 | Outpatient (CLI) | payer MEDICARE, OTHER ==
--- NOTE | ~2017-03-24 | CT14 ---
[facility] A Service of [facility] RADIOLOGY TEXT RESULTS PATIENT: MAX LAWSON LOCATION: [facility] : 39 UNIT #: [id number] AGE: [address]: Gabbi Rios MD SEX: M ORDER DR: [id number] [facility] [address] [place], [place] [address] [id number] O MR#: [id number] [facility] #: [id number] NAME: MAX LAWSON : 1940 SEX: M STUDY DATE/TIME: 03/24/2017 10:46 UNIT: [facility] ROOM: STUDY DESCRIPTION: CT Angio Abdomen and Pelvis Attending Physician: Gabbi Rios M.D. Referring Physician: Gabbi Rios M.D. Ordering Physician: Gabbi Rios M.D. Primary Care Physician: Tomy Leung M.D. MEDICAL IMAGING REPORT This report is preliminary unless electronic signature is present EXAM CT angiogram of the abdomen and pelvis INDICATION Prior EVAR for aortic aneurysm. Routine follow up. TECHNIQUE CT angiogram of the abdomen and pelvis was performed before and after the administration of IV contrast using a multiphase stent graft protocol. Coronal, sagittal and 3D reformatted images obtained. This CT exam was performed with one or more of the following radiation dose reduction techniques: Automatic exposure control, adjustment of mA and/or kV according to patient size, and iterative reconstruction. COMPARISON Comparison is made with 09/22/2016. FINDINGS CT ANGIOGRAM: There has been a prior endovascular aortic repair. The stent graft is widely patent. The aneurysm sac size measures about 4.9 cm in greatest AP dimension which is slightly decreased. There is no evidence for an Endoleak. Stable appearance of the visceral arteries. CT OF THE ABDOMEN: New small amount of patchy parenchymal density in the posterior right lower lobe may represent atelectasis or possibly small infiltrate. This can be followed. The liver, gallbladder and spleen are unremarkable. There are multiple cysts within the kidneys bilaterally. Additionally, there is a 1.8 cm cystic lesion in the posterior aspect of the left kidney with what appears to be a central septation and possibly some solid components within the anterior portion of the cystic lesion. There is a tiny nonobstructing stone in the lower pole of the right kidney and a tiny nonobstructing stone in the mid pole of the left kidney. The adrenal glands are unremarkable. The pancreas is unremarkable. [facility] A Service of [facility] RADIOLOGY TEXT RESULTS PATIENT: MAX LAWSON LOCATION: [facility] : 39 UNIT #: [id number] AGE: [address]: Gabbi Rios MD SEX: M ORDER DR: PELVIS: Extensive sigmoid diverticulosis. Normal appendix. Prostatic calcifications. Bone windows show postoperative changes of the left hip. Extensive degenerative changes of the right hip. IMPRESSION 1. There is 1.8 cm cystic lesion within the posterior aspect of the left kidney which does not in the appearance of a simple cyst. There appears to be septations centrally and maybe possibly some solid components anteriorly. At this point, I would recommend formal renal mass protocol imaging of this lesion with a CT of the abdomen with and without contrast or MRI of the abdomen with without contrast renal mass protocol. 2. No evidence for Endoleak. Decrease in size of aneurysm sac. Dictated by... Obed Ramachandran M.D. THIS IS AN ELECTRONICALLY VERIFIED REPORT Obed Ramachandran M.D. at 03/26/2017 9:30 AM MARYANNE/fernando TD: 03/25/2017 10:22 JOB #: [id number] MEDICAL IMAGING REPORT Page 1 of 1 COPY
== END | disposition home or self-care (01) ==
LOC: CCAT 07:39
DX: I71.9 Aortic aneurysm of unspecified site, without rupture (principal); I65.23 Occlusion and stenosis of bilateral carotid arteries; I10 Essential (primary) hypertension; E78.5 Hyperlipidemia, unspecified; N28.1 Cyst of kidney, acquired
CPT/HCPCS: 74174; J7060; Q9967

== ENCOUNTER → 2017-03-24 | Outpatient (CLI) | payer MEDICARE, OTHER ==
--- NOTE | ~2017-03-24 | US38 ---
[facility] A Service of [facility] & [facility] RADIOLOGY TEXT RESULTS PATIENT: MAX LAWSON LOCATION: CNIV : 39 UNIT #: [id number] AGE: [address]: Any Davila SEX: M ORDER DR: [id number] [facility] [address] [place], [place] [address] [id number] O MR#: [id number] Acc #: [id number] NAME: MAX LAWSON. : 1940 SEX: M STUDY DATE/TIME: 03/24/2017 11:22 UNIT: CNIV ROOM: STUDY DESCRIPTION: US Carotid W/Doppler Unilatera Attending Physician: Any Davila A.P.R.N. Referring Physician: Any Davila A.P.R.N. Ordering Physician: Any Davila A.P.R.N. Primary Care Physician: Tomy Leung M.D. MEDICAL IMAGING REPORT This report is preliminary unless electronic signature is present EXAM Left carotid Doppler, 03/24/2017 REASON FOR EXAM Carotid stenosis. History of left carotid endarterectomy. FINDINGS The left common carotid, internal carotid and external carotid arteries are patent, with minimal plaque in the common carotid artery but no plaque in the distal common carotid artery, carotid bulb, internal or external carotid arteries. Velocity of the common carotid artery is 74 cm/sec. Peak systolic velocity of the left proximal internal carotid artery is 41 cm/sec with an end-diastolic velocity of 9 cm/sec for an ICA/CCA ratio of 0.55. External carotid artery had a velocity of 122 cm/sec. The vertebral artery is visualized with antegrade flow. IMPRESSION 1. Normal appearance, without plaque or stenosis of the left internal carotid artery. 2. No stenosis of the external carotid artery. 3. Antegrade flow of the vertebral artery. Dictated by... Gabbi Rios M.D. THIS IS AN ELECTRONICALLY VERIFIED REPORT Gbabi Rios M.D. at 03/26/2017 7:33 AM FPN/psc TD: 03/24/2017 16:49 JOB #: [id number] [facility] A Service of [facility] RADIOLOGY TEXT RESULTS PATIENT: MAX LAWSON LOCATION: CNIV : 39 UNIT #: [id number] AGE: [address]: Any Davila SEX: M ORDER DR: MEDICAL IMAGING REPORT Page 1 of 1 COPY
== END | disposition home or self-care (01) ==
LOC: CNIV 07:42
DX: I65.22 Occlusion and stenosis of left carotid artery (principal)
CPT/HCPCS: 93882